=== PATIENT | female | born 1975 | race Two or more races ===

== ENCOUNTER 2017-07-10 16:16 | Emergency (ER) | payer OTHER, MEDICAID ==
[2017-07-10] MEDS ORDERED: IBUPROFEN 600 MG TAB PO ONE (16:20)
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
[2017-07-10 16:24] VITALS: RESP 18
[2017-07-10 17:30] VITALS: BP 120/84; PULSE 76; TEMP 98.4; O2SAT 99
== END 2017-07-10 17:23 | disposition home or self-care (01) ==
LOC: EDUNIT#
DX: S39.012A Strain of muscle, fascia and tendon of lower back, initial encounter (principal); V49.49XA Driver injured in collision with other motor vehicles in traffic accident, initial encounter; Y92.410 Unspecified street and highway as the place of occurrence of the external cause; Y99.8 Other external cause status; Y93.89 Activity, other specified

== ENCOUNTER 2018-01-15 06:15 | Emergency (ER) | payer MEDICAID, OTHER ==
[2018-01-15 06:22] VITALS: TEMP 98.6; O2SAT 98
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
[2018-01-15] MEDS ORDERED: GABAPENTIN 300 MG CAP PO ONE (07:03)
[2018-01-15] MEDS ORDERED: LIDOCAINE 4%/MENTHOL 1% PATCH TD ONE (07:03)
[2018-01-15 08:02] VITALS: BP 112/64; PULSE 78; RESP 16
[2018-01-15] MEDS ORDERED: PATCH REMOVAL 1 EA PATCH TD SCH (21:00)
== END 2018-01-15 08:33 | disposition home or self-care (01) ==
DX: M54.5 Low back pain (principal)